=== PATIENT | female | born 1965 | race Two or more races ===

== ENCOUNTER 2024-06-05 01:51 | Emergency (ER) | payer MEDICAID, OTHER ==
[~2024-06-05] VITALS: Ht 165.1 cm; Wt 68.0 kg
--- NOTE | 2024-06-05 03:11 | ED.PDOC ---
History of Present Illness HPI Comments 59-year-old female brought in by EMS presents with a chief complaint of flu-like symptoms x 4 days. Patients symptoms are: cough, chills, sore throat, body aches, and nasal congestion. Patient denies any chest pain, nausea, vomiting, diarrhea, abdominal pain, headache, or SOB. No other symptoms or modifying factors present at this time. Chief Complaint: Flu like Time Seen by MD: 03:02 Reviewed Notes: Medications, Allergies Allergies: Coded Allergies: NO KNOWN ALLERGIES (Unverified , 06/05/24) Information Source: Patient Mode of Arrival: EMS Severity: Moderate Timing: Days Duration: Since onset Prehospital treatment: None Past Medical History PAST MEDICAL HISTORY: Denies Surgical History: Denies all surgeries MEDICAL SCIENTIFIC LIAISON History: Denies all MEDICAL SCIENTIFIC LIAISON Hx Family History Family History: Reviewed,noncontributory to illness Social History Smoker: Non-Smoker Alcohol: Denies ETOH Use Drugs: Denies Drug Use Lives In: Home Constitutional: reports: chills, others (BODY ACHES); denies: diaphoresis, fatigue, fever, malaise, sweats, weakness EENTM: reports: nose congestion, throat pain; denies: blurred vision, double vision, ear bleeding, ear discharge, ear drainage, ear pain, ear ringing, eye pain, eye redness, hearing loss, mouth pain, mouth swelling, nasal discharge, nose bleeding, nose pain, photophobia, tearing, throat swelling, voice changes, others Respiratory: reports: cough; denies: hemoptysis, orthopnea, SOB at rest, shortness of breath, SOB with excertion, stridor, wheezing, others Cardiovascular: denies: chest pain, dizzy spells, diaphoresis, Dyspnea on exertion, edema, irregular heart beat, left arm pain, lightheadedness, palpitations, PND, syncope, others Gastrointestinal: denies: abdomen distended, abdominal pain, blood streaked bowels, constipated, diarrhea, dysphagia, difficulty swallowing, hematemesis, melena, nausea, poor appetite, poor fluid intake, rectal bleeding, rectal pain, vomiting, others Genitourinary: denies: abnormal vagina bleeding, burning, dyspareunia, dysuria, flank pain, frequency, hematuria, incontinence, pain, , vagina discharge, urgency, others Neurological: denies: dizziness, fainting, headache, left sided numbness, left sided weakness, numbness, paresthesia, pre-existing deficit, right sided numbness, right sided weakness, seizure, speech problems, tingling, tremors, weakness, others Musculoskeletal: denies: back pain, gout, joint pain, joint swelling, muscle pain, muscle stiffness, neck pain, others Integumetry: denies: bruises, change in color, change in hair/nails, dryness, laceration, lesions, lumps, rash, wounds, others Allergic/Immunocompromised: denies: Difficulty Healing, Frequent Infections, Hives, Itching, others Hematologic/Lymphatic: denies: anemia, blood clots, easy bleeding, easy bruising, swollen glands, others Endocrine: denies: excessive hunger, excessive sweating, excessive thirst, excessive urination, flushing, intolerance to cold, intolerance to heat, unexplained weight gain, unexplained weight loss, others Psychiatric: denies: anxiety, bipolar disorder, depression, hopeless, panic disorder, schizophrenia, sleepless, suicidal, others All Other Systems: Reviewed and Negative Physical Exam General Appearance: No Apparent Distress, Normal HEENT: Normal ENT Inspection, Pharynx Normal, TMs Normal Neck: Full Range of Motion, Non-Tender, Normal, Normal Inspection Respiratory: Chest Non-Tender, Lungs Clear, No Accessory Muscle Use, No Respiratory Distress, Normal Breath Sounds Cardiovascular: No Edema, No JVD, No Murmur, No Gallop, Normal Peripheral Pulses, Regular Rate/Rhythm Breast Exam: Deferred Gastrointestinal: No Organomegaly, Non Tender, No Pulsatile Mass, Normal Bowel Sounds, Soft Genitalia: Deferred Pelvic: Deferred Rectal: Deferred Extremities: No calf tenderness, Normal capillary refill, Normal inspection, Normal range of motion, Non-tender, No pedal edema Musculoskeletal : Apperance: Normal Neurologic: Alert, parking manager II-XII nml as Tested, No Motor Deficits, Normal Affect, Normal Mood, No Sensory Deficits Cerebellar Function: Normal Reflexes: Normal Skin: Dry, Normal Color, Warm Lymphatic: No Adenopathy Was a procedure done? Was a procedure done?: No Differential Dx Considerations may include: Differential diagnosis includes but not limited to : Influenza, COVID-19, pneumonia, bronchitis, sepsis and others X-Ray, Labs, Meds, VS Vital Signs Date Time Temp Pulse Resp B/P (MAP) Pulse Ox O2 Delivery O2 Flow Rate FiO2 12/31/24 04:00 98.7 56 19 97/42 (60) 93 98.7 06/05/24 03:00 Room Air* 0 21 06/05/24 02:44 99.1 62 22 107/39 (61) 95 99.1 06/05/24 02:07 99.1 70 14 108/66 (80) 96 Lab Test 06/05/24 03:00 Range/Units Influenza Type A Antigen Positive Negative Influenza Type B Antigen Negative Negative SARS-CoV-2 Antigen (Rapid) Negative NEGATIVE Current Medications Medications (Trade) Dose Ordered Sig/Luther Route Start Time Stop Time Status Last Admin Acetaminophen (Tylenol Tablet) 1,000 mg ONCE ONCE PO 06/05/24 03:15 06/05/24 03:16 DC 06/05/24 03:25 Ondansetron HCl (Zofran Po) 8 mg ONCE ONCE PO 06/05/24 03:15 06/05/24 03:16 DC 06/05/24 03:26 Time of 1ST Reevaluation: 03:32 Reevaluation 1ST: Unchanged Time of 2ND Reevaluation: 05:27 Reevaluation 2ND: Improved Patient Education/Counseling: Diagnosis, Treatment, Prognosis Family Education/Counseling: No Family Present Departure 1 Departure Time of Disposition: 05:27 Impression: Primary Impression: Nausea vomiting and diarrhea Additional Impression: Viral syndrome Disposition: 01 HOME / SELF CARE / HOMELESS Condition: Stable Discharged With: Self Critical Care Note Critical Care Time?: No Stability Stability form required: No I personally scribed for BRITTNY ENRIQUEZ MD ([email or web address]) on 06/05/24 at 03:11. Electronically submitted by James Arroyo ([email or web address]). BRITTNY ENRIQUEZ MD Jun 05, 2024 03:11
[2024-06-05] MEDS: ACETAMINOPHEN 325 MG TAB PO ONE (03:25)
[2024-06-05] MEDS: ONDANSETRON ODT 4 MG TAB PO ONE (03:26)
[2024-06-05 03:52] LABS: COVID19 ANTIGEN SOFIA FIA NEGATIVE (NEGATIVE); Rapid Influenza B Negative (Negative)
[2024-06-05 03:54] LABS: Rapid Influenza A Positive (Negative)
--- NOTE | 2024-06-05 04:32 | DVH ---
CHEST RADIOGRAPH Indication: cough, weakness Technique: Single frontal view of the chest was obtained Comparison: None FINDINGS: Lines and Tubes: None Lungs: No focal consolidation. Pleura: No effusion. No pneumothorax. Cardiomediastinal contours: Unremarkable Bones: No acute osseous abnormality. IMPRESSION: No acute cardiopulmonary disease.
[2024-06-05] MEDS ORDERED: OSEL75CA5 PO (05:50)
[2024-06-05 06:03] VITALS: BP 107/41; PULSE 52; RESP 13; TEMP 98.6; O2SAT 96
== END 2024-06-05 06:08 | disposition home or self-care (01) ==
LOC: EDBD 01:51 → ER 01:51
DX: B34.9 Viral infection, unspecified (principal); Z20.822 Contact with and (suspected) exposure to COVID-19
CPT/HCPCS: 36415; 71045; 87426; 87804; 99285; Q0162